=== PATIENT | male | born 1950 ===

== ENCOUNTER 2021-06-24 08:45 | Observation (INO) ==
[~2021-06-24 08:45] MED LIST: Acetaminophen IV 1 GM/100ML 0 ML IV ONE; Buffered Lidocaine 1% SYRIN 1 ml INTRADERM ONE; Dexamethasone IV 4 MG/ML VIAL 1 ml VIAL IV SLOW PU ONE; Famotidine IV 10 MG/ML 2 ml VIAL (20 mg) IV ONE; Ketamine HCL 50 mg/ml 10 ml VIAL (500 MG) ONE; Lactated Ringers 1000 ml BAG 1,000 ML IV SCH; Lidocaine 2% PF 5 ML VIAL ONE; Midazolam 2 mg/2 ml VIAL 1 mg/ml 2 ml VIAL (2 mg) ONE; Propofol 10 MG/ML 20 ML BTL ONE; fentaNYL 100 mcg/2 ml 50 MCG/ML VIAL ONE
[2021-06-24] MEDS ORDERED: Dexamethasone IV 4 MG/ML VIAL 1 ml VIAL ONE (09:13)
[2021-06-24] MEDS ORDERED: Famotidine IV 10 MG/ML 2 ml VIAL (20 mg) ONE (09:13)
[2021-06-24] MEDS ORDERED: ceFAZolin 1 GM ADVAN 1 GM ADDV.VIAL IVPB ONE (09:13)
[2021-06-24] MEDS ORDERED: ceFAZolin 2 GM in NS PREMIX 2 GM/100 ML BAG IVPB ONE (09:13)
[2021-06-24] MEDS ORDERED: Midazolam 2 mg/2 ml VIAL 1 mg/ml 2 ml VIAL (2 mg) ONE (10:20)
[2021-06-24] MEDS ORDERED: fentaNYL 100 mcg/2 ml 50 MCG/ML VIAL ONE ×2 (10:20→14:30)
[2021-06-24] MEDS ORDERED: ROPIVACAINE 5 MG/ML 30 ML BTL (0.5%) ONE (10:25)
[2021-06-24] MEDS ORDERED: Ropivacaine 5 MG/ML 20 ML VIAL 0.5% (100 MG) ONE (10:40)
[2021-06-24] MEDS ORDERED: fentaNYL 250 mcg/5 ml 50 MCG/ML 5 ml VIAL (250 MCG) ONE (10:54)
[2021-06-24] MEDS ORDERED: Rocuronium 50 mg VIAL 10 mg/ml 5 ml VIAL (50 mg) ONE (10:54)
[2021-06-24] MEDS ORDERED: Prochlorperazine 5 mg/ml 2 ml VIAL (10 mg) IV PRN (10:55)
[2021-06-24] MEDS ORDERED: Naloxone 0.4 mg VIAL 0.4 mg/ml 1 ml VIAL IV PRN (10:55)
[2021-06-24] MEDS ORDERED: Ondansetron 4 mg VIAL 2 MG/ML 2 ml VIAL ONE (11:43)
[2021-06-24] MEDS ORDERED: Phenylephrine 40 mcg/mL 10mL (400mcg) SYRINGE ONE ×2 (11:58→13:00)
[2021-06-24] MEDS ORDERED: Lactulose 30 ml UDC PO PRN (12:59)
[2021-06-24] MEDS ORDERED: diPHENhydraMINE IV 50 MG/ML 1 ml VIAL (BENADRYL) IV PRN (12:59)
[2021-06-24] MEDS ORDERED: Magnesium Hydroxide LIQ 30 ML UDC PO PRN (12:59)
[2021-06-24] MEDS ORDERED: Ondansetron 4 mg VIAL 2 MG/ML 2 ml VIAL IV PRN (12:59)
[2021-06-24] MEDS ORDERED: Morphine 2 MG/ML SYRINGE IV PRN (12:59)
[2021-06-24] MEDS ORDERED: diPHENhydraMINE 25 mg TAB PO PRN (12:59)
[2021-06-24] MEDS ORDERED: Ondansetron ODT 4 mg TAB 4 MG TAB PO PRN (12:59)
[2021-06-24] MEDS ORDERED: Morphine 4 MG/ML VIAL (1 ml) ONE ×2 (14:03→14:13)
[2021-06-24] MEDS: Morphine 4 MG/ML VIAL (1 ml) IV PRN ×3 (14:03→14:14)
[2021-06-24] MEDS ORDERED: Prochlorperazine 5 mg/ml 2 ml VIAL (10 mg) ONE (14:06)
[2021-06-24] MEDS: fentaNYL 100 mcg/2 ml 50 MCG/ML VIAL IV PRN ×2 (14:32→14:41)
[2021-06-24] MEDS: Lactated Ringers 1000 ml BAG 1,000 ML IV SCH (15:00)
[2021-06-24] MEDS: ceFAZolin 1 GM ADVAN 1 GM in NS 0.9% 50 ML 50 ML IVPB SCH (18:48)
[2021-06-24] MEDS: Magnesium Hydroxide LIQ 30 ML UDC PO SCH (21:28)
[2021-06-25] MEDS: Lactated Ringers 1000 ml BAG 1,000 ML IV SCH (02:14)
[2021-06-25] MEDS: ceFAZolin 1 GM ADVAN 1 GM in NS 0.9% 50 ML 50 ML IVPB SCH ×2 (03:59→11:28)
[2021-06-25 07:35] LABS: Hematocrit 32 % (42-52); Hemoglobin 11.3 g/dL (14.0-18.0); Mean Platelet Volume 7.9 fL (7.4-10.4); Platelet Count 179 10^3/uL (150-450)
[2021-06-25 07:53] LABS: Calcium 7.6 mg/dL (8.6-10.3); EGFR African American 98.4 (>60); EGFR Non-African American 81.3 (>60); Potassium 4.1 mmol/L (3.5-5.0)
[2021-06-25] MEDS: Magnesium Hydroxide LIQ 30 ML UDC PO SCH (08:34)
[2021-06-25] MEDS ORDERED: Vitamin THERAPEUTIC TAB PO SCH (09:00)
[2021-06-25 11:42] VITALS: BP 108/59
== END 2021-06-25 15:00 | disposition home or self-care (01) ==
LOC: OR 08:45 → SSU 08:45
PROVIDERS: ADMIT Orthopaedic Surgery Adult Reconstructive Orthopaedic Surgery; ATTEND Orthopaedic Surgery Adult Reconstructive Orthopaedic Surgery